=== PATIENT | male | born 1990 | race Caucasian/White ===

== ENCOUNTER 2016-05-28 20:16 | Emergency (ER) | payer OTHER ==
[~2016-05-28] VITALS: Ht 170.2 cm; Wt 84.7 kg
[2016-05-28] MEDS ORDERED: FLUORESCEIN OPHTHALMIC 1 MG STRIP ONE ×2 (20:57→21:40)
[2016-05-28] MEDS ORDERED: PROPARACAINE OPHTH 0.5%, 15ML ONE (20:57)
[2016-05-28] MEDS ORDERED: FLUORESCEIN OPHTHALMIC 1 MG STRIP EACHEYE ONE (21:00)
[2016-05-28] MEDS ORDERED: PROPARACAINE OPHTH 0.5%, 15ML EACHEYE ONE (21:00)
[2016-05-28] MEDS ORDERED: DIPH,PERTUSS(ACELL),TET VAC/PF 0.5 ML IM-VACC ONE ×2 (22:00→22:06)
[2016-05-28 22:14] VITALS: BP 124/75
== END 2016-05-28 22:15 | disposition home or self-care (01) ==
LOC: ED 21:34
DX: S05.02XA Injury of conjunctiva and corneal abrasion without foreign body, left eye, initial encounter (principal); X58.XXXA Exposure to other specified factors, initial encounter; Y93.89 Activity, other specified; Y99.8 Other external cause status; Y92.89 Other specified places as the place of occurrence of the external cause
CPT/HCPCS: 90471; 90715